=== PATIENT | male | born 1935 | race Hispanic/Latino ===

== ENCOUNTER 2017-07-28 08:48 | Observation (INO) | payer MEDICARE ==
[2017-07-26 10:07] LABS: BASOPHILS # (AUTO) 0.1 (0.0-0.1); BASOPHILS % 0.9 % (0.0-1.0); EOSINOPHILS # (AUTO) 0.5 (0.0-0.4); EOSINOPHILS % 5.8 % (0.0-6.0); HEMATOCRIT 42.7 % (38.2-49.6); LYMPHOCYTES # (AUTO) 1.2 (1.0-3.2); LYMPHOCYTES % 14.7 % (18.0-39.1); MEAN CORPUSCULAR HEMOGLOBIN 32.5 pg (28-32); MEAN CORPUSCULAR HGB CONC 32.8 g/dL (31-35); MEAN CORPUSCULAR VOLUME 99.1 fL (81-99); MONOCYTES # (AUTO) 0.6 (0.2-0.8); MONOCYTES % 7.7 % (4.4-11.3); NEUTROPHILS # (AUTO) 5.7 (2.1-6.9); NEUTROPHILS % 70.3 % (38.7-80.0); PLATELET COUNT 223 x10e3/uL (140-360); RED BLOOD COUNT 4.31 x10e6/uL (4.3-5.7); RED CELL DISTRIBUTION WIDTH 13.4 % (11.7-14.4)
--- NOTE | 2017-07-26 10:08 | Diagnostic Imaging Report ---
PROCEDURE: X-RAY CHEST, TWO VIEWS COMPARISON: None. INDICATIONS: PREOPERATIVE CHEST XRAY FOR PROSTATE SURGERY FINDINGS: LUNGS: No consolidations or edema. PLEURA: No effusions or pneumothorax. HEART \T\ MEDIASTINUM: The heart is within normal size-limits. Calcification within the aorta. BONES \T\ SOFT TISSUES: No acute findings. Degenerative changes of the spine. CONCLUSION: No acute thoracic abnormality. Wing Key D.O. Dictated by: Wing Key D.O. on 07/26/2017 at 10:16 Electronically approved by: Wing Key D.O. on 07/26/2017 at 10:16
[2017-07-26 10:23] LABS: ANION GAP 12.2 mmol/L (8-16); BLOOD UREA NITROGEN 22 mg/dL (7-26); BUN/CREATININE RATIO 20 (6-25); CALCIUM 9.2 mg/dL (8.4-10.2); CARBON DIOXIDE 29 mmol/L (22-29); CHLORIDE 106 mmol/L (98-107); CREATININE, SERUM 1.09 mg/dL (0.72-1.25); EST GLOMERULAR FILTRATION RATE > 60 ML/MIN (60-); GLUCOSE 143 mg/dL (74-118); POTASSIUM 5.2 mmol/L (3.5-5.1); SODIUM 142 mmol/L (136-145)
[~2017-07-28] VITALS: Ht 175.3 cm; Wt 90.3 kg
[~2017-07-28 08:48] MED LIST: ENALAPRIL-HCTZ1 EACH PO; FINASTERIDE5 MG PO; FLOMAX0.4 MG PO; MELOXICAM PO; METFORMIN PO; MONTELUKAST PO; OMEPRAZOLE PO; SULFAMETHOXAZO1 EAC1 PO; ULTRAM 50MG50 MG PO
[2017-07-28] MEDS ORDERED: CEFTRIAXONE SOD 1 GM/NS 50 ML 50 ML IV ONE (09:49)
[2017-07-28 13:36] VITALS: BP 163/82
[2017-07-28] MEDS ORDERED: DEXTROSE 5%/0.45% SOD CHL 1,000 ML IV SCH (13:45)
[2017-07-28] MEDS ORDERED: ACETAMINOPHEN/CODEINE 300MG - 30MG TAB PO PRN (13:45)
[2017-07-28] MEDS ORDERED: VASOTEC5 MG PO (14:09)
[2017-07-28] MEDS ORDERED: GABAPENTIN300 MG PO (14:12)
[2017-07-28] MEDS ORDERED: NITROFURANTOIN100 MG PO (14:12)
[2017-07-28] MEDS ORDERED: DIAZEPAM5 MG PO (14:12)
[2017-07-28] MEDS ORDERED: TRAMADOL HCL 50 MG TAB PO SCH (14:15)
[2017-07-28] MEDS ORDERED: TRAMADOL HCL 50 MG TAB PO PRN (14:30)
[2017-07-28] MEDS: GABAPENTIN 300 MG CAP PO SCH ×2 (14:35→20:15)
[2017-07-28] MEDS ORDERED: DIAZEPAM 5 MG TAB PO SCH (15:00)
[2017-07-28 16:34] VITALS: BP 131/63
[2017-07-28] MEDS ORDERED: LIDOCAINE HCL 2% LOCAL INJ 5 ML SDV VIAL INJ ONE (17:40)
[2017-07-28] MEDS ORDERED: EPHEDRINE SULFATE INJ 50 MG/10 ML SYR ONE (17:40)
[2017-07-28] MEDS ORDERED: ONDANSETRON HCL INJ 2 MG/ML VIAL ONE (17:40)
[2017-07-28] MEDS ORDERED: DEXAMETHASONE SOD PHOS INJ 4 MG/ML VIAL ONE (17:40)
[2017-07-28] MEDS ORDERED: PROPOFOL IV EMULSION 10 MG/ML 20 ML VIAL ONE (17:40)
[2017-07-28] MEDS ORDERED: SEVOFLURANE INHAL SOLN 250 ML PEN BTL ONE (17:40)
[2017-07-28] MEDS ORDERED: FENTANYL CITRATE/PF 100MCG/2 ML INJ ONE (18:26)
[2017-07-28] MEDS: SODIUM CHLORIDE 0.45% 1,000 ML IV SCH (19:21)
[2017-07-28 20:00] VITALS: BP 114/59
[2017-07-28] MEDS ORDERED: ENALAPRIL MALEATE 10 MG TAB PO SCH (21:00)
[2017-07-28] MEDS ORDERED: ENALAPRIL MALEATE 5 MG TAB PO SCH (21:00)
[2017-07-28] MEDS ORDERED: NITROFURANTOIN MACROCRYSTALS 100 MG CAP PO SCH (21:00)
[2017-07-28] MEDS ORDERED: FINASTERIDE 5 MG TAB PO SCH (21:00)
[2017-07-28] MEDS ORDERED: NITROFURANTOIN 50 MG CAP PO SCH (21:00)
[2017-07-28] MEDS ORDERED: DEXTROSE 50% SYRINGE 50 ML IV PRN ×2 (22:00→22:15)
[2017-07-29] VITALS: BP 107/59
[2017-07-29 04:00] VITALS: BP 100/59
[2017-07-29] MEDS: SODIUM CHLORIDE 0.45% 1,000 ML IV SCH ×2 (04:46→15:15)
[2017-07-29] MEDS ORDERED: INSULIN LISPRO 100 UNIT/1 ML 3ML VIAL SQ SCH (07:30)
[2017-07-29] MEDS ORDERED: PANTOPRAZOLE SOD 40 MG TABEC PO SCH (07:30)
[2017-07-29 08:06] VITALS: BP 127/68
[2017-07-29 08:13] LABS: ANION GAP 13.1 mmol/L (8-16); CALCIUM 8.1 mg/dL (8.4-10.2); CREATININE, SERUM 1.35 mg/dL (0.72-1.25); POTASSIUM 4.1 mmol/L (3.5-5.1)
[2017-07-29] MEDS: GABAPENTIN 300 MG CAP PO SCH ×2 (08:28→15:20)
[2017-07-29] MEDS: INSULIN REGULAR, HUMAN 100 UNIT/1 ML 3ML VIAL SQ SCH ×3 (08:29→16:30)
[2017-07-29] MEDS ORDERED: LEVOFLOXACIN 500 MG TAB PO SCH (09:00)
[2017-07-29] MEDS ORDERED: TAMSULOSIN HCL 0.4 MG CAP PO SCH (09:00)
[2017-07-29] MEDS ORDERED: METFORMIN HCL 500 MG TAB CR PO SCH (09:00)
[2017-07-29] MEDS ORDERED: OMEPRAZOLE 40 MG PO SCH (09:00)
[2017-07-29] MEDS ORDERED: METFORMIN 500 MG PO SCH (09:00)
[2017-07-29 11:59] VITALS: BP 123/73
[2017-07-29 16:29] VITALS: BP 129/68
--- NOTE | 2017-07-31 12:24 | Operative Report ---
DATE OF PROCEDURE: July 28, 2017 PREOPERATIVE DIAGNOSIS: Bladder outlet obstruction. POSTOPERATIVE DIAGNOSIS: Bladder outlet obstruction. OPERATIVE PROCEDURE PERFORMED: Cystoscopy and transurethral resection of the prostate. ANESTHESIA: General anesthesia. ESTIMATED BLOOD LOSS: 100 mL. INDICATIONS: Mr. 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 He now presents for definitive surgical management of this problem. PROCEDURE IN DETAIL: The patient was brought into the operating room and placed in the supine position and, after the administration of general anesthesia, was placed in the dorsal lithotomy position and prepped and draped in the usual sterile fashion. Cystourethroscopy was performed using a 21-Uzbek cystoscope. The anterior and posterior urethra was noted to be normal. The prostate reveals evidence of trilobar hyperplasia with mild to moderate elevation in the median bar. The bladder was entered without difficulty. Upon entrance into the bladder, there were grade 2 trabeculations noted throughout. The ureteral orifices were in normal anatomical position and produced clear efflux. There were no mucosal lesions identified although the bladder mucosa did appear thicker than usual. The bladder was left full, and the cystoscope and the sheath were removed. A 26-Uzbek resectoscope sheath was then placed in a retrograde fashion, and the ReelBig resectoscope was used to perform the procedure. Beginning at the 1 o'clock position and proceeding in a clockwise fashion down to the 6 o'clock position, all of the adenomatous tissue between the bladder neck and the veru was resected down to the level of the surgical capsule. Although the capsule was penetrated on this side, there was no gross perforation. A similar procedure was performed on the contralateral side in a counterclockwise fashion beginning at the 11 o'clock position and again ending at the 6 o'clock position. The residual tissue at the roof and floor of the gland were then resected down. Visualization of the bladder neck from the veru revealed an open prostate. The [place] evacuator was used to remove all chips, and once adequate hemostasis was secured, the bladder was left full and the resectoscope and the sheath were removed. The patient was noted to have a brisk urinary flow with coude. A 24-Uzbek 3-way coude catheter was then placed in a retrograde fashion and the balloon inflated with 40 mL of sterile water. Urinary efflux was noted to be blood-tinged. The patient was returned to the supine position on continuous bladder irrigation, and anesthesia was reversed. He was transferred to a bed and taken to the postanesthesia care unit in good condition. Of note, the needle and instrument count was correct at the conclusion of the case. Job#: [id number] EV
[2017-09-26] MEDS ORDERED: MONTELUKAST SOD10 MG PO (09:53)
[2017-09-26] MEDS ORDERED: SENNOSIDES8.6 MG PO (09:53)
[2017-09-26] MEDS ORDERED: METFORMIN PO (09:54)
== END 2017-07-29 17:03 | disposition home or self-care (01) ==
LOC: OR 08:48 → IMCU 12:09
PROVIDERS: ADMIT Urology; ATTEND Urology
DX: N40.1 Benign prostatic hyperplasia with lower urinary tract symptoms (principal); N13.8 Other obstructive and reflux uropathy; R32 Unspecified urinary incontinence; I10 Essential (primary) hypertension; E11.9 Type 2 diabetes mellitus without complications; K21.9 Gastro-esophageal reflux disease without esophagitis; Z87.440 Personal history of urinary (tract) infections; Z01.812 Encounter for preprocedural laboratory examination; Z79.84 Long term (current) use of oral hypoglycemic drugs
CPT/HCPCS: 36415 ×3; 52601; 71020; 80048 ×2; 82948 ×2; 85025; 88305; 88342; 93005; 96361; G0378 ×2; J0696; J1100; J2001; J2405

== ENCOUNTER → 2017-09-27 | Day surgery (SDC) | payer MEDICARE ==
[2017-09-21 14:39] LABS: BASOPHILS # (AUTO) 0.1 (0.0-0.1); BASOPHILS % 0.9 % (0.0-1.0); EOSINOPHILS # (AUTO) 0.3 (0.0-0.4); EOSINOPHILS % 4.8 % (0.0-6.0); HEMATOCRIT 40.9 % (38.2-49.6); HEMOGLOBIN 13.5 g/dL (14.0-18.0); LYMPHOCYTES # (AUTO) 1.3 (1.0-3.2); LYMPHOCYTES % 18.9 % (18.0-39.1); MEAN CORPUSCULAR HEMOGLOBIN 32.1 pg (28-32); MEAN CORPUSCULAR VOLUME 97.1 fL (81-99); MONOCYTES # (AUTO) 0.6 (0.2-0.8); MONOCYTES % 8.3 % (4.4-11.3); NEUTROPHILS # (AUTO) 4.6 (2.1-6.9); NEUTROPHILS % 66.7 % (38.7-80.0); PLATELET COUNT 260 x10e3/uL (140-360); RED BLOOD COUNT 4.21 x10e6/uL (4.3-5.7)
[~2017-09-27] MED LIST changes: +DIAZEPAM5 MG PO; +FENTANYL CITRATE/PF 100MCG/2 ML INJ ONE; +GABAPENTIN300 MG PO; +HYOSCYAMINE SULFATE 0.5 MG/ML AMP ONE; +MIDAZOLAM HCL 2 MG/2 ML VIAL ONE; +MONTELUKAST SOD10 MG PO; +NITROFURANTOIN100 MG PO; +PROPOFOL IV EMULSION 10 MG/ML 50 ML VIAL ONE; +SENNOSIDES8.6 MG PO; +VASOTEC5 MG PO
--- NOTE | 2017-09-27 13:23 | Operative Report ---
DATE OF PROCEDURE: September 27, 2017 REFERRING PHYSICIAN: Dr. Violeta Romo PROCEDURES PERFORMED 1. Esophagogastroduodenoscopy with esophageal dilatation. 2. Colonoscopy with polypectomy. INDICATIONS FOR EGD: Dysphagia, heartburn and indigestion. INDICATIONS FOR COLONOSCOPY: Colorectal cancer screening and history of anemia. MEDICATION: Patient was done under MAC. Please see anesthesiologist's note. PROCEDURE: With the patient in the left lateral decubitus position, the flexible fiberoptic Olympus gastroscope was introduced into the esophagus under direct visualization without any difficulty. There was some patchy erythema noted in the distal esophagus. A mild stricture was noted at the GE junction, and that was dilated to size 52-[place]oo. The scope was then advanced with ease into the stomach, traversing a small hiatal hernia. Mucosa overlying the antrum and the body revealed some patchy erythema and mild to moderate edema, and biopsies were obtained and sent to stain for H. pylori. Pylorus appeared to be of normal contour and shape. It was intubated with ease, and the scope was advanced all the way to the 2nd portion of the duodenum. The scope was then withdrawn slowly. Mucosa overlying the proximal 2nd portion and the duodenal bulb appeared to be within normal limits. The scope was then withdrawn back into the stomach and retroflexed. The fundus appeared to be within normal limits. The previously described hiatal hernia was also noted in the retroflexed position. The scope was then straightened out. The stomach was decompressed. Scope was subsequently withdrawn. Patient tolerated the procedure well. IMPRESSION 1. Distal esophagitis. 2. Esophageal stricture at gastroesophageal junction dilated to size 52-[place] Koo. 3. Hiatal hernia. 4. Gastritis, biopsied. Biopsies sent to stain for H. pylori. PLAN: Follow up histology. Initiate Protonix 40 mg 1 p.o. q.a.m. a.c. The patient was then turned around. After adequate lubrication of the anal canal, the flexible fiberoptic Olympus colonoscope was inserted into the rectum with ease and advanced all the way to the cecum. One polyp was snared from the cecum. The ascending appeared to be within normal limits. One polyp was snared from the transverse colon. Diverticular disease was noted to involve the descending and the sigmoid. The rectum appeared to be within normal limits. The scope was then retroflexed into the distal rectum, and small internal hemorrhoids were noted, none of which was actively bleeding. The scope was then straightened out, and it was subsequently withdrawn. Patient tolerated the procedure well. IMPRESSION 1. Cecal polyp, snared. 2. Transverse colon polyp, snared. 3. Diverticulosis. 4. Internal hemorrhoids, none actively bleeding. PLAN: Follow up histology. Initiate high-fiber, low-fat diet. Initiate high-fiber supplement. Patient might benefit from a followup colonoscopy in 3 years. Job#: [id number] cc:VIOLETA ROMO MD
== END | disposition home or self-care (01) ==
LOC: OR 08:54
PROVIDERS: ATTEND Internal Medicine Gastroenterology
DX: Z12.11 Encounter for screening for malignant neoplasm of colon (principal); D12.3 Benign neoplasm of transverse colon; K29.70 Gastritis, unspecified, without bleeding; K22.2 Esophageal obstruction; K20.9 Esophagitis, unspecified; K59.00 Constipation, unspecified; K44.9 Diaphragmatic hernia without obstruction or gangrene; K57.30 Diverticulosis of large intestine without perforation or abscess without bleeding; K64.8 Other hemorrhoids; D64.9 Anemia, unspecified; I10 Essential (primary) hypertension; E11.9 Type 2 diabetes mellitus without complications; Z01.810 Encounter for preprocedural cardiovascular examination; Z01.812 Encounter for preprocedural laboratory examination; Z68.28 Body mass index [BMI] 28.0-28.9, adult
CPT/HCPCS: 36415 ×2; 43239; 43450; 45385; 82948; 85025; 88305; 88312; 93005; J1980; J2250